=== PATIENT | female | born 1960 | race Hispanic/Latino ===

== ENCOUNTER 2023-07-08 12:15 | Emergency (ER) | payer OTHER ==
[~2023-07-08] VITALS: Ht 160 cm; Wt 60.8 kg
[2023-07-08] MEDS ORDERED: MAG/ALUM/SIMETH 30 ML UDCUP PO ONE (16:00)
[2023-07-08] MEDS ORDERED: ONDANSETRON ODT 4MG TAB SL ONE (16:00)
[2023-07-08] MEDS ORDERED: FAMOTIDINE 20MG TAB PO ONE (16:00)
[2023-07-08] MEDS ORDERED: DICYCLOMINE HCL 10 MG/5 ML ML PO ONE (16:00)
[2023-07-08] MEDS ORDERED: FAMO20TA8 PO (16:56)
[2023-07-08 17:10] VITALS: BP 134/78; PULSE 84; RESP 20; O2SAT 98
== END 2023-07-08 17:06 | disposition home or self-care (01) ==
LOC: EDH 12:15
DX: K29.70 Gastritis, unspecified, without bleeding (principal); E03.9 Hypothyroidism, unspecified
CPT/HCPCS: 70360; 71046